=== PATIENT | male | born 1975 | race Two or more races ===

== ENCOUNTER 2019-12-21 19:34 | Emergency (ER) | payer OTHER ==
[~2019-12-21] VITALS: Ht 177.8 cm; Wt 79.4 kg
[2019-12-21] MEDS ORDERED: ULTRACET PO (20:53)
== END 2019-12-21 21:05 | disposition home or self-care (01) ==
LOC: ER 19:34
DX: S62.112A Displaced fracture of triquetrum [cuneiform] bone, left wrist, initial encounter for closed fracture (principal); V16.3 Person boarding or alighting a pedal cycle injured in collision with other nonmotor vehicle in nontraffic accident; Y93.89 Activity, other specified; Y92.832 Beach as the place of occurrence of the external cause; Y99.8 Other external cause status